=== PATIENT | male | born 1960 | race Caucasian/White ===

== ENCOUNTER 2016-10-08 23:25 | Emergency (ER) | payer OTHER, MEDICAID ==
--- NOTE | 2016-10-08 23:39 | EDPHY ---
H & P Time Seen by Provider: 10/08/16 23:28 HPI/ROS: CHIEF COMPLAINT: Right knee pain and calf swelling HISTORY OF PRESENT ILLNESS: 55-year-old male remote history of right knee surgery states that he twisted his knee a few days ago. He is currently in custody and is complaining of right knee pain and new right calf pain and swelling. No discoloration. No history of DVT. No direct trauma or fall. No paresthesia. PRIMARY CARE PROVIDER: REVIEW OF SYSTEMS: A ten point review of systems was performed and is negative with the exception of the items mentioned in the HPI PHYSICAL EXAM (Prior to examination, patient consented to physical exam, hands were washed and my usual and customary physical exam procedures followed) 1) GENERAL: Well-developed, well-nourished, alert and oriented. Appears to be in no acute distress. 2) HEAD: Normocephalic 3) HEENT: Pupils equal, round, reactive to light bilaterally. 4) LUNGS: Breathing comfortably. 5) MUSCULOSKELETAL: Exam of the Right knee shows with normal coloration normal temperature. Tender to palpation medial knee. . Compartments are soft. 6) SKIN: mild asymmetrical asymmetrical edema to the right calf is noted . Compartments are soft. No discoloration. DP PT pulses present and brisk distally. Dorsiflexion plantar flexion distally elicits no pain proximally. 7) VASCULAR: DP,PT pulses and cap refill present and brisk distally DIFFERENTIAL DIAGNOSIS: in no particular order including but not limited to fracture, sprain, compartment syndrome, septic arthritis, DVT MEDICAL DECISION MAKING Serial evaluations performed on patient, recently at 12:07 a.m.. I discussed the limitations of x-ray in diagnosis of knee pain and injury. At this time I do not think that emergent MRI is currently indicated. However, I have recommended follow-up with Orthopedic surgery and provided this referral information. Informed the patient that outpatient MRI may be indicated. Doubt septic arthritis. Doubt compartment syndrome. Doubt DVT. Plan will be discharge back to residential. - Personal History Tetanus Vaccine Date: 2009 - Medical/Surgical History Hx Asthma: Yes Hx Chronic Respiratory Disease: No Hx Diabetes: No Hx Cardiac Disease: No Hx Renal Disease: No Hx Cirrhosis: No Hx Alcoholism: Yes Hx HIV/AIDS: No Hx Splenectomy or Spleen Trauma: No Other PMH: MEDICAL- ASTHMA. SURGICAL- ORTHO. ETOH ABUSE - Social History Smoking Status: Light smoker Constitutional: Initial Vital Signs Temperature (C) 36.6 C 10/08/16 23:39 Heart Rate 100 10/08/16 23:39 Respiratory Rate 16 10/08/16 23:39 Blood Pressure 137/89 H 10/08/16 23:39 O2 Sat (%) 99 10/08/16 23:39 O2 Delivery Mode Room Air Allergies/Adverse Reactions: No Allergies Allergy (Unknown, Verified 11/23/14 09:27) Home Medications: Medication Instructions Recorded Albuterol Sulfate [Albuterol 1 - 2 puffs IH Q4H #1 mdi 10/27/14 Inhaler Hfa] Albuterol [Proventil Inhaler HFA 1 - 2 puffs IH Q4 #1 mdi 11/23/14 (*)] Beclomethasone Qvar 40 [Qvar 40] 1 puffs IH BID #1 mdi 11/23/14 Prilosec 11/23/14 predniSONE 20 mg PO BID #0 tablet 11/23/14 Medical Decision Making - Diagnostics Imaging: Ultrasound Venous Duplex/Doppler Right Leg History: Pain and swelling. Findings: Ultrasound venous duplex and Doppler imaging of the common femoral vein, femoral vein, popliteal vein, calf veins, greater saphenous vein origin, and contralateral common femoral vein demonstrates normal compressibility, color flow, and Doppler flow without deep venous thrombosis. Impression: No deep venous thrombosis right leg. Results called and discussed with Talia Castaneda PA-C, at 10/08/2016 23:59. Dictated By: Quique Reeves MD Images reviewed by myself Xray of the right knee interpreted by myself: no definitive acute osseous abnormality Departure - Departure Disposition: Home, Routine, Self-Care Clinical Impression: Right knee pain Qualifiers: Chronicity: acute Qualified Code(s): M25.561 - Pain in right knee Condition: Good Instructions: Knee Sprain (ED) Additional Instructions: Return to the ER immediately if you experience discoloration, have worsening pain, numbness, tingling, or any other symptoms that concern you. If you received x-rays in the emergency department today, be advised, that ligamentous , tendon, muscular, and other non-bony injury cannot be fully ruled out. Try to keep your affected extremity elevated above the level of your chest, and keep cold packs on the affected area, for the next 48 hours. Referrals: Reggie Enriquez MD [Medical Doctor] - 5-7 days, call for appt.
[2016-10-08 23:42] VITALS: BP 137/89; PULSE 100; RESP 16; TEMP 97.9; O2SAT 99
== END 2016-10-09 00:23 | disposition home or self-care (01) ==
DX: M25.561 Pain in right knee (principal); J45.909 Unspecified asthma, uncomplicated; F17.200 Nicotine dependence, unspecified, uncomplicated

== ENCOUNTER 2017-08-20 18:50 | Emergency (ER) | payer MEDICAID, OTHER ==
[2017-08-20 18:55] VITALS: TEMP 97.7
[2017-08-20 19:20] VITALS: RESP 20
--- NOTE | 2017-08-20 20:54 | EDPHY ---
H & P Stated Complaint: ETOH - Personal History Current Tetanus/Diphtheria Vaccine: Yes Tetanus Vaccine Date: 2009 - Medical/Surgical History Hx Asthma: Yes Hx Chronic Respiratory Disease: No Hx Diabetes: No Hx Cardiac Disease: No Hx Renal Disease: No Hx Cirrhosis: No Hx Alcoholism: Yes Hx HIV/AIDS: No Hx Splenectomy or Spleen Trauma: No Other PMH: MEDICAL- ASTHMA. SURGICAL- ORTHO. ETOH ABUSE - Social History Smoking Status: Light smoker HPI/ROS: Chief complaint: Alcohol intoxication History of present illness: This is a 56-year-old male brought to the Emergency Department by EMS for alcohol intoxication. Patient was found walking around intoxicated. He was too intoxicated to the go to the [facility]. He was brought here. On initial evaluation strong odor of alcohol noted on breath he is essentially sleeping on the bed, hard to arouse to verbal stimuli. Review of systems: Unable to obtain secondary level of intoxication (Diego Smith ) - Physical Exam Exam: General Appearance: Alert to verbal stimuli Eyes: PERRLA ENT: No hemotympanum, no solorio sign, no raccoon eyes Respiratory: Lungs clear to auscultation bilaterally Cardiac: Regular rate and rhythm. Gastrointestinal: Bowel sounds normal, abdomen soft, nondistended, nontender Neurological: Alert to verbal stimuli. Moving all extremities without difficulty. Skin: No lesions consistent with trauma noted Musculoskeletal: Head is without apparent tenderness, no crepitus or bony deformity, spine is without apparent tenderness, crepitus, bony deformity step- off, chest wall intact palpation, patient moving all extremities without difficulty. (Diego Smith) Constitutional: Initial Vital Signs Temperature (C) 36.5 C 08/20/17 18:54 Heart Rate 74 08/20/17 18:54 Respiratory Rate 16 08/20/17 18:54 Blood Pressure 101/67 08/20/17 18:54 O2 Sat (%) 96 08/20/17 18:54 O2 Delivery Mode Room Air Allergies/Adverse Reactions: No Allergies Allergy (Unknown, Verified 11/23/14 09:27) Home Medications: Medication Instructions Recorded Albuterol Sulfate [Albuterol 1 - 2 puffs IH Q4H #1 mdi 10/27/14 Inhaler Hfa] Albuterol [Proventil Inhaler HFA 1 - 2 puffs IH Q4 #1 mdi 11/23/14 (*)] Beclomethasone Qvar 40 [Qvar 40] 1 puffs IH BID #1 mdi 11/23/14 Prilosec 11/23/14 predniSONE 20 mg PO BID #0 tablet 11/23/14 Medical Decision Making ED Course/Re-evaluation: Patient seen under the supervision of my secondary supervising physician Dr. Kaelyn Kincaid. Patient presents to the emergency department intoxicated. History and physical exam with no evidence of trauma or other medical conditions. He is observed in the emergency room for over 2 hr to sober up. He is able to get up on his own and go to the bathroom. He has no complaints. [facility] of the [facility]. (Diego Smith) The patient was evaluated and managed by the physician teachers' assistant. I have reviewed this chart and I agree with the findings and plan of care as documented , as indicated by my signature. I am the secondary supervising physician. ( Kaelyn Kincaid) Differential Diagnosis: Included but not limited to alcohol intoxication, polysubstance abuse, alcohol withdrawal (Diego Smith) Departure - Departure Disposition: Law Enforcement/Court/Snf Clinical Impression: Alcoholic intoxication Qualifiers: Complication of substance-induced condition: uncomplicated Qualified Code(s): F10.920 - Alcohol use, unspecified with intoxication, uncomplicated Condition: Good Instructions: Alcohol Intoxication (ED) Additional Instructions: Follow-up with the primary care doctor this week for recheck If symptoms worsen or new symptoms develop return to the emergency room for recheck Referrals: Patient,NotPresent [Primary Care Provider] - As per Instructions [facility],. [Clinic] - As per Instructions
[2017-08-20 21:06] VITALS: BP 116/78; PULSE 83; O2SAT 96
== END 2017-08-20 21:05 ==
LOC: EDUNIT#
DX: F10.920 Alcohol use, unspecified with intoxication, uncomplicated (principal); J45.909 Unspecified asthma, uncomplicated; F17.200 Nicotine dependence, unspecified, uncomplicated

== ENCOUNTER 2018-03-11 18:34 | Emergency (ER) | payer MEDICAID, OTHER ==
[2018-03-11 18:48] VITALS: BP 118/60
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
== END 2018-03-11 18:56 | disposition home or self-care (01) ==
DX: F10.920 Alcohol use, unspecified with intoxication, uncomplicated (principal); J45.909 Unspecified asthma, uncomplicated; F17.200 Nicotine dependence, unspecified, uncomplicated

== ENCOUNTER 2018-05-29 16:30 | Emergency (ER) | payer MEDICAID ==
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
[2018-05-29] MEDS ORDERED: CHLORDIAZEPOXIDE 25MG PREPK#6 BTL TAKEHOME ONE ×2 (18:34→18:38)
[2018-05-29 18:40] VITALS: BP 110/87
== END 2018-05-29 18:44 | disposition home or self-care (01) ==
LOC: EDUNIT#
DX: R07.81 Pleurodynia (principal); S22.31XD Fracture of one rib, right side, subsequent encounter for fracture with routine healing; F10.920 Alcohol use, unspecified with intoxication, uncomplicated; F17.200 Nicotine dependence, unspecified, uncomplicated; Z59.0 Homelessness